=== PATIENT | female | born 1955 ===

== ENCOUNTER 2018-03-18 20:06 | Observation (INO) | payer OTHER ==
--- NOTE | 2018-03-18 20:20 | ED ---
Dizziness - HPI Summary HPI Summary: A 62 y/o female brought in by ambulance who was transferred from [facility] presents to [facility] with a chief complaint of dizziness since 11:00 03/18/18. The patient was at [facility] for weakness and was transferred to [facility] for neurology. The patient was given Lopressor and Reglan for nausea. She claims that her dizziness has been intermittent and is not able to describe her dizziness as room-spinning. - History Of Current Complaint Stated Complaint: FLU LIKE SYMPTOMS Time Seen by Provider: 03/18/18 20:09 Hx Obtained From: Patient, EMS Onset/Duration: Still Present Timing: Minutes Severity Initially: Mild Severity Currently: Mild Character: Unable To Describe Aggravating Factor(s): Nothing Alleviating Factor(s): Nothing Associated Signs And Symptoms: Positive: Nausea. Negative: Fever - Allergies/Home Medications Allergies/Adverse Reactions: Allergies Allergy/AdvReac Type Severity Reaction Status Date / Time No Known Allergies Allergy Verified 03/18/18 20:16 Home Medications: Home Medications Claritin 10 mg PO DAILY PRN 03/18/18 [History Confirmed 03/18/18] Ranitidine INJ(*) 10 mg PO DAILY 03/18/18 [History Confirmed 03/18/18] PMH/Surg Hx/FS Hx/Imm Hx - Cancer History Hx Chemotherapy: No Hx Radiation Therapy: No Review of Systems Negative: Fever Positive: Nausea Neurological: Other - positive: dizziness All Other Systems Reviewed And Are Negative: Yes Physical Exam - Summary Physical Exam Summary: Appearance: The patient is well-nourished in no acute distress and in no acute pain. Skin: The skin is warm and dry and skin color reflects adequate perfusion. HEENT: The head is normocephalic and atraumatic. The pupils are equal and reactive. The conjunctivae are clear and without drainage. Nares are patent and without drainage. Mouth reveals moist mucous membranes and the throat is without erythema and exudate. The external ears are intact. The ear canals are patent and without drainage. The tympanic membranes are intact. Neck: The neck is supple with full range of motion and non-tender. There are no carotid bruits. There is no neck vein distension. Respiratory: Chest is non-tender. Lungs are clear to auscultation and breath sounds are symmetrical and equal. Cardiovascular: Heart is regular rate and rhythm. There is no murmur or rub auscultated. There is no peripheral edema and pulses are symmetrical and equal. Abdomen: The abdomen is soft and non-tender. There are normal bowel sounds heard in all four quadrants and there is no organomegaly palpated. Musculoskeletal: There is no back tenderness noted. Extremities are non-tender with full range of motion. There is good capillary refill. There is no peripheral edema or calf tenderness elicited. Neurological: Horizontal nystagmus vast component to the right. Patient is alert and oriented to person, place and time. The patient has symmetrical motor strength in all four extremities. Cranial nerves are grossly intact. Deep tendon reflexes are symmetrical and equal in all four extremities. Psychiatric: The patient has an appropriate affect and does not exhibit any anxiety or depression. GCS: 14. Triage Information Reviewed: Yes Vital Signs Reviewed: Yes Diagnostics - Laboratory Result Diagrams: 03/19/18 05:31 03/19/18 05:28 Lab Statement: Any lab studies that have been ordered have been reviewed, and results considered in the medical decision making process. Dizzy Course/Dx - Course Course Of Treatment: Ms. Pena came over from [facility] where she spent most of the day. The report and the patient are a little bit vague but it seems as though her major complaint is dizziness and that there is a spinning component to it. She is not very forthcoming with answers so I'm not certain about that. She is nontoxic in appearance and her vital signs are stable. She has had a CT scan and labs and the onset was this morning. She is in the 24 hour window so a CTA was obtained to rule out a retrievable clot causing a posterior CVA. She will be admitted to the hospitalist service with a neurological consult and I spoke with Dr. Robbins and Dr. Grady.S She will likely need an MRI scan. - Diagnoses Provider Diagnoses: CVA (cerebral vascular accident) - Provider Notifications Discussed Care Of Patient With: Sheng Robbins Time Discussed With Above Provider: 20:25 Instructed by Provider To: Other - Will consult with the patient and recommends admission. Discharge - Sign-Out/Discharge Documenting (check all that apply): Patient Departure - admit - Discharge Plan Condition: Fair Disposition: ADMITTED TO [facility] - Billing Disposition and Condition Condition: FAIR Disposition: Admitted to [facility] - Attestation Statements Document Initiated by Scribe: Yes Documenting Scribe: Frandy Fisher Provider For Whom Scribe is Documenting (Include Credential): Mathew San MD Scribe Attestation: I, Frandy Fisher, scribed for Mathew San MD on 03/19/18 at 1154. Scribe Documentation Reviewed: Yes Provider Attestation: The documentation as recorded by the Frandy villanueva accurately reflects the service I personally performed and the decisions made by me, Mathew San MD Status of Scribe Document: Viewed Consult Consult: At 21:[address] Zavala, hospitalist, who may accept the patient based on the results of the Head/neck CTA.
[2018-03-18] MEDS ORDERED: Iodixanol* (CONTRAST) 320 MG/ML 100 ML SDV IV ONE (21:29)
[2018-03-18] MEDS ORDERED: Al Hydrox/Mg Hydrox/Simet LIQ* 30 ML UDC PO PRN (22:58)
[2018-03-18] MEDS ORDERED: PROCHLORPERAZINE INJ 5 MG/ML 2 ML VIAL IV PRN (23:18)
--- NOTE | 2018-03-19 01:52 | HP ---
CC: ELIN Arias * HISTORY AND PHYSICAL: DATE OF ADMISSION: 03/18/18 TIME OF ADMISSION: 11 p.m. CHIEF COMPLAINT: Dizziness. HISTORY OF PRESENT ILLNESS: This is a 62-year-old female with history of hypertension who presents with dizziness that started at 11 o'clock this morning. She was sitting at her desk at work, talking with someone when she had the sudden onset of dizziness which lasted approximately 10 minutes. Then it went away, came back again, and this happened approximately 3 times before she went home and lied down to rest. The symptoms then got progressively worse and she called her son, who came over and helped her up to go to the bathroom and she could barely walk. Her son says at that time she was breathing heavily and complained of her heart racing. Then, her daughter came to pick her and her son up, and when she was walking down the stairs, she could barely walk to the car. Then, she collapsed on the sidewalk and threw up what her daughter reports was a large volume and she was sweaty. She continues to feel dizzy, but closing her eyes helps and continues to feel nauseous. She denies chest pain, shortness of breath, headache, or change in vision. PAST MEDICAL HISTORY: Hypertension. She stopped taking medications. PAST SURGICAL HISTORY: She had a cholecystectomy, 2 C-sections, and a breast biopsy. SOCIAL HISTORY: She smokes a half a pack per day. She does not drink alcohol. She lives in [place]. Her emergency contact is her sister, Cherie. REVIEW OF SYSTEMS: Remainder of the 14-point review of systems was negative, except as per the HPI. PHYSICAL EXAMINATION GENERAL: Alert, uncomfortable female, in no distress. She vomits during my interview. She answers all my questions appropriately. VITAL SIGNS: Temperature 98.6, respiratory rate 16, pulse ox 94% on room air, heart rate 82, blood pressure 167/94. HEENT: Her pupils are 5 mm bilaterally and reactive to light. She has very slight nystagmus to the right which fatigues after 3 seconds. Her oral mucosa is dry. NECK: No JVP, no adenopathy, no meningeal signs. CHEST: Regular rate and rhythm. No murmurs. Lungs are clear bilaterally. ABDOMEN: Soft, mildly tender in the epigastric area. No guarding or rebound. No CVA tenderness. EXTREMITIES: No rashes, edema, or ulcers. NEUROLOGIC: Her strength is 5/5 in all extremities. Her patellar deep tendon reflexes are 2+ bilaterally. Her sensation is grossly intact. Her face is symmetric. Her coordination is intact. DIAGNOSTIC STUDIES/LAB DATA: Labs: D dimer less than 400. Urinalysis is negative. Creatinine 1.1, sodium 141, potassium 2.6, bicarb 21. White blood cells 9.6, hemoglobin 14.6, platelets 405. Troponin 0.003 from [facility]. Lactic acid 2.7. LFTs were within normal limits. Influenza swab was negative. 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 CTA of the neck shows no acute findings. ASSESSMENT AND PLAN: This is a 62-year-old female with no past medical history , except hypertension for which she does not take medications, who presented to the emergency department with several episodes of dizziness, nausea, vomiting, and weakness. 1. Paroxysmal dizziness, nausea, and vomiting associated with weakness. The differential for this is broad. Certainly, vertigo is on the differential. A CT and a CTA have ruled out an acute intracranial process, but I think she warrants an MRI in the morning to rule out a central cause of vertigo such as a cerebellar stroke. Dr. Robbins has been consulted by the emergency room physician and he agrees to see her in the morning as well. I have discussed her CTA findings with him. These are not likely to be contributing to her symptoms. An LP for opening pressure could also be considered if the MRI is unrevealing. In the meantime, I will treat her symptomatically and hydrate her. 2. Hypokalemia. This suggests ongoing GI losses, though she said that nausea and vomiting just started at 11 o'clock this morning. This has been replaced at [facility] and we will recheck it along with the next troponin. 3. Elevated lactic acid. I will recheck this again with the next troponin also. If it is still elevated, that raises a question of a primary abdominal process. 4. DVT prophylaxis. Heparin subcutaneously. 5. Hypertension. She does not take anything at home, though she is hypertensive here. In the setting of nausea and vomiting, we will hold off on resuming any antihypertensives and follow her blood pressure trend. [id number]/[facility] #: [id number] JOANN
[2018-03-19] MEDS ORDERED: NIFEdipine CAP* 10 MG PO ONE (02:04)
[2018-03-19 03:22] LABS: Potassium 3.5 mmol/L (3.5-5.0)
[2018-03-19] MEDS: Heparin VIAL(*) 5000 UNITS/ML VIAL (FIVE THOUSAND) SUBCUT SCH ×3 (05:13→21:17)
[2018-03-19] MEDS: Meclizine TAB* 12.5 MG PO SCH ×3 (05:13→21:16)
[2018-03-19 05:38] LABS: ABS Basophils 0 10^3/ul (0-0.2); ABS Eosinophils 0 10^3/ul (0-0.6); ABS Lymphocytes 1.5 10^3/ul (1.0-4.8); ABS Monocytes 0.5 10^3/ul (0-0.8); ABS Neutrophils 9.6 10^3/ul (1.5-7.7); ABS Nucleated RBC 0 10^3/ul; Eosinophil % 0 %; Hematocrit 42 % (35-47); Hemoglobin 14.4 g/dl (12.0-16.0); Lymphocyte % 12.6 %; Mean Corpuscular HGB Conc 34 g/dl (31-36); Mean Corpuscular Hemoglobin 30 pg (27-31); Mean Corpuscular Volume 89 fL (80-97); Mean Platelet Volume 8.9 fL (7.4-10.4); Nucleated Red Blood Cells % 0.1; Platelet Count 361 10^3/ul (150-450); Red Blood Count 4.73 10^6/ul (4.00-5.40); Red Cell Distribution Width 13 % (10.5-15); White Blood Count 11.7 10^3/ul (3.5-10.8)
[2018-03-19 05:53] LABS: BUN/Creatinine Ratio 11.5 (8-20); Calcium 9.5 mg/dL (8.6-10.3); EGFR Non-African American 75.3 (>60); Potassium 3.5 mmol/L (3.5-5.0)
[2018-03-19] MEDS: Nicotine PATCH 14 MG/24 HR* PATCH TRANSDERM SCH (07:27)
[2018-03-19] MEDS: NS 0.9% 1000 ML* 1,000 ML IV SCH ×3 (07:30→23:15)
--- NOTE | 2018-03-19 12:09 | CONS ---
CC: ELIN Arias CONSULTATION REPORT: DATE OF CONSULT: 03/19/18 LOCATION: Current location is room 436, bed 1. PRIMARY CARE PHYSICIAN: ELIN Arias REASON FOR CONSULTATION: Acute onset of dizziness and balance issues. HISTORY OF PRESENT ILLNESS: Ms. Pena is a very nice 62-year-old female with a history of hypertensi on, on no medications at home, who was at work yesterday, when around 11 o'clock, she noticed acute o nset of dizziness. She states that she was sitting down when it happened and developed dizziness, al though she denied any marivel room spinning. This lasted for about 10 minutes and then resolved sponta neously. It subsequently happened again 2 more times, each time lasting about 10 minutes. It seemed to be positional in nature and she had a hard time walking. She denied any headache at that time. She has had some tinnitus in the right ear for the last several weeks. No recent illnesses, viral il lnesses or flu. She had no vision changes at that time, no vision loss. There is no facial droop rep orted. She states that her heart was racing some, but she denied any chest pain or shortness of facundo th. She was otherwise in her usual state of health. She went home and went to lie down to rest. Re sting seemed to make it a little bit better, but the symptoms remained. She had a hard time walking and felt off balance, felt like she was falling to the left. She called her son, who came over, trie d to get her up, but she could not walk, at that time, she noted feeling like her heart was racing. She felt very diaphoretic. Her son attempted to get her to the car when she fell down and vomited an d was diaphoretic. The dizziness persisted and she was taken to the [facility] where further workup was done. In the ER, a CT of the head was done, which showed no acute abnormalities. She had eleva sophia blood pressure in the ER there, 162/80. She was given meclizine in the ER, Zofran, a dose of cef triaxone, metoprolol, also given azithromycin. Chemistries significant for potassium of 2.6, creatinine of 1.1, glucose of 151, lactic acid of 2.7. D-dimer less than 400. Based on all of this, she did not improve and she was eventually transferred to the [facility] ER where further workup was done. She had a head CT angiogram. The an giogram showed several abnormalities including a CT of the head, which showed aneurysm of the anterio r communicating artery, measuring 2 mm, aneurysm of the bifurcating of M1 segment of the right middle cerebral artery measuring 2 mm, multifocal moderate stenosis of bilateral M2 and M3 segments of bila teral middle cerebral arteries, multifocal mild to moderate stenosis of bilateral posterior cerebral arteries in the P2 and P3 segments. CT angiogram of the neck showed no acute findings. Vertebral art eries appeared patent. No dissection or occlusions. Carotid arteries are patent. No significant st enosis, no dissections or occlusions. She was admitted and sent to the floor with meclizine with no real improvement of her symptoms. She continued to vomit overnight. This morning, she feels nauseat ed when she moves, but when she closes her eyes and is still, she feels that her symptoms are better. She notes no hearing loss, no vision loss, no blurry vision, no speech problems, no swallowing prob lems. She has had no focal numbness, tingling, or weakness in her arm or legs. She continues to hav e palpitations at times. She notes no chest pain, shortness of breath. PAST MEDICAL HISTORY: As noted above. Hypertension. PAST SURGICAL HISTORY: Includes breast biopsy. She has had C-sections x2 and a cholecystectomy. CURRENT MEDICATIONS: 1. Maalox. 2. Heparin 5000 subcu. 3. Meclizine 25 mg p.o. q.8 hours. 4. Nicotine 1 patch transdermally. 5. Compazine 5 mg IV q.6 hours p.r.n. 6. She was given nifedipine 10 mg p.o. ALLERGIES: No known drug allergies. SOCIAL HISTORY: She smokes one half to one pack per day for 40 years. She denies any alcohol or roxana g use. 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 REVIEW OF SYSTEMS: Review of systems in 14-organ systems as noted above, otherwise negative. PHYSICAL EXAMINATION: Vital Signs: Temp of 98.6 to 97.2, she has been afebrile, pulse rate has been in the 70s to 96, respiratory rate 18, pulse ox of 95% to 99%. Blood pressure has been elevated, 179 /87 to 152/82 to 156/90 to 183/90. General: She is a well-nourished, well-developed, obese female. She is sleeping in her bed on her right side. She awakens easily. She is pleasant, although in some obvious discomfort. She is normocephalic, atraumatic. Sclerae are anicteric. Mucous membranes are dry. Oropharynx is clear. Nares are patent. Neck is supple. No thyromegaly. No carotid bruits. No meningismus. Chest is clear to auscultation bilaterally. Cardiovascular is regular rate and rhy thm. No murmurs, gallops or rubs. Abdomen is obese, nontender. Extremities: No clubbing, cyanosis or edema. Her skin is warm and dry without lesions. On neurologic exam, she is awake, alert and helio ented x3. Her speech is fluent. There is no dysarthria. Repetition is intact. Recall of recent an d remote events is intact. Vocabulary is intact. Her mood is dysthymic, affect mood congruent. Pie Cutter nial Nerves: Pupils are equally round and reactive to light and accommodation. Extraocular muscles are intact with no nystagmus. No ptosis. No diplopia. Visual hdz are full. Facial sensation is intact to light touch. Face is symmetric bilaterally. Hearing is intact bilaterally to finger rub. Palate raises symmetrically. Tongue is midline. Sternocleidomastoid and trapezius are 5/5. Motor exam, she is spontaneous and moves all extremities antigravity. Tone and bulk are both normal. She is 5/5 throughout in the upper and lower extremities proximally and distally. Sensation is intact to light touch in the upper and lower extremities throughout. No focal deficits. DTRs are 2+ and symm etric at the biceps, triceps, brachioradialis, patella, 1+ at the ankles, equivocal Babinski's. Fing er-to-nose and rapid alternating movements are intact with no dysdiadochokinesia or dysmetria. Heel- to- valladares is intact as well. There is no resting tremor. There is no uuozao-lh-bfyc tremor. Unfortu nately, she was unable to get up due to her dizziness and unsteadiness, so I did not walk her. She h as been able to ambulate some overnight with assistance. I did have her turn her head from side-to-s cornell with no nystagmus appreciated, but she did have some worsening of her dizziness. DIAGNOSTIC STUDIES/LAB DATA: Imaging as noted above. CTA and head CT, MRI is pending. Laboratory work includes basic metabolic panel with glucose of 139, lactic acid 0.9, calcium of 9.5, troponins of 0.00. Her CBC with diff shows a white count of 11.7, absolute neutrophils of 9.6. ASSESSMENT AND PLAN: Ms. Pena is a pleasant 62-year-old female with a history of hypertension, appa rently untreated at home, who presented to [facility] with acute onset of dizziness at 11 a.m. yeste rday. This persisted, she was eventually brought to the ER where CT of the head was done with no acu te changes. She was subsequently transferred to [facility] for further workup. CT angiog perez of the head [id number] some small aneurysms and some stenotic disease in the middle cerebral artery and posterior cerebral artery, vertebral basilar system looked intact. Overnight, she has continued to feel very dizzy. This has not responded very well to meclizine. She tends to improve when she is very still, when she moves, it exacerbates her symptoms. She notes continued nausea when she turns her head. On examination, there was no nystagmus appreciated. There was no obvious ataxia. No dysm etria, dysdiadochokinesia. Cbti-wu-absx and bbekvj-ds-txim both look okay. Symptoms were reproducib le with head turning and with position changes. Imaging shows no obvious causes for her symptoms. 1. I suspect that her dizziness is likely either vertiginous in nature versus the possibility of a s troke, in particular brainstem or cerebellar stroke. The plan is to get an MRI of her brain, should it show evidence of a stroke, we will need to proceed with a stroke workup including echocardiogram. She would need to be started on a baby aspirin at that point. I think this is safe given the small size of her aneurysms at this point, but I would hold for now. Other considerations would be a verti ginous migraine. She notes that she had migraines in the distant past, but none recently and she raymundo s not have headaches. The description of these events is atypical for that. Vertebral basilar syndr ome is a possibility, although her arteries look clean and open. She denies any recent viral illness es, I do not think that this is a viral prodrome. We will continue to treat her with Compazine and m eclizine as needed, IV fluids and I explained to her that often times, giving this some time will hel p. I may consider some steroids in the near future if she does not improve. 2. Vascular abnormalities on CTA. Her aneurysms are small, rather 2 mm. Her stenotic disease is mu ltifocal and moderate in the bilateral M2 and M3 segments, multifocal and mild to moderate in the P2 and P3 segments. No dissections or occlusions. Suspicion for something like a connective tissue dis ease is low, this is likely atherosclerotic in nature. I would check her cholesterol and treat accor dingly. She needs to strive for a tight blood pressure control. An aspirin ad terminal makeup operator probably would not hurt at this point, but we will hold for now, pending MRI and she will need continued followup f or her aneurysms with serial imaging over time, once these start to enlarge, we will need to refer to a neurosurgeon for further evaluation. 3. Tobacco use. She is on a nicotine patch. We will certified alcohol counselor on smoking cessation. 4. Hypertension. We will await the results of the MRI, but assuming there has been no stroke, we wi ll treat aggressively. For now, I would let her blood pressure run in the moderate range treating an y elevations greater than 180/95. 5. We discussed the possibility of vestibular physical therapy should that be needed, that can be do ne as an outpatient. I will plan to follow her up as well as an outpatient. I will continue to follow her closely and make further recommendations as necessary. Thank you for the opportunity to participate in the care of this very nice patient. [id number]/[facility] #: [id number]
[2018-03-19] MEDS ORDERED: Metoprolol Tartrate TAB* 25 MG PO ONE (15:14)
--- NOTE | 2018-03-19 15:30 | PN ---
Subjective Date of Service: 03/19/18 Interval History: Patient seen today, she continues to have increase dizziness and difficulty ambulating. no acute events. Appetite is better. no vomiting today. BP remain elevated. MRI reviewed. No acute CVA. Family History: Unchanged from Admission Social History: Unchanged from Admission Objective Active Medications: Al Hydrox/Mg Hydrox/Simethicone (Maalox Plus*) 30 ml PO Q6H PRN PRN Reason: INDIGESTION Last Admin: 03/19/18 00:40 Dose: 30 ml Heparin Sodium (Porcine) (Heparin Vial(*)) 5,000 units SUBCUT Q8HR [facility] Last Admin: 03/19/18 13:27 Dose: 5,000 units Sodium Chloride (Ns 0.9% 1000 Ml*) 1,000 mls @ 150 mls/hr IV PER RATE [facility] Last Admin: 03/19/18 07:30 Dose: 150 mls/hr Meclizine HCl (Antivert Tab*) 25 mg PO Q8HR [facility] Last Admin: 03/19/18 13:27 Dose: 25 mg Metoprolol Tartrate (Lopressor Tab*) 25 mg PO ONCE ONE Stop: 03/19/18 15:15 Metoprolol Tartrate (Lopressor Tab*) 25 mg PO BID [facility] Nicotine (Nicotine Patch 14 Mg/24 Hr*) 1 patch TRANSDERM DAILY [facility] Last Admin: 03/19/18 07:27 Dose: Not Given Pharmacy Profile Note (Nicotine Patch Removal Note*) 1 note PATCH OFF 2100 [facility] Prochlorperazine Edisylate (Compazine Inj*) 5 mg IV Q6H PRN PRN Reason: NAUSEA/VOMITING Last Admin: 03/19/18 00:40 Dose: 5 mg Vital Signs - 8 hr 03/19/18 03/19/18 07:27 12:17 Temperature 97.3 F 98.5 F Pulse Rate 103 97 Respiratory 14 16 Rate Blood Pressure 149/71 157/84 (mmHg) O2 Sat by Pulse 93 97 Oximetry Oxygen Devices in Use Now: None Appearance: awake, alert no distress. coherent. follow simple commands Eyes: No Scleral Icterus, PERRLA Ears/Nose/Mouth/Throat: NL Teeth, Lips, Gums, Clear Oropharnyx, Mucous Membranes Moist Neck: NL Appearance and Movements; NL JVP, Trachea Midline Respiratory: Symmetrical Chest Expansion and Respiratory Effort, Clear to Auscultation Cardiovascular: NL Sounds; No Murmurs; No JVD, RRR, No Edema Abdominal: NL Sounds; No Tenderness; No Distention Extremities: No Edema, No Clubbing, Cyanosis Skin: No Rash or Ulcers Neurological: Alert and Oriented x 3, - - unsteady gait requires one assist for balance. Result Diagrams: 03/19/18 05:31 03/19/18 05:28 Assess/Plan/Problems-Billing Assessment: 62 y/o female transferred from [facility] for nausea, vomiting and dizziness. CTA head shows incidental 2 mm cerebral aneurysm, MRI brain grossly negative. Admitted for possible BPV but remain unsteady on feet - Patient Problems (1) Dizziness Current Visit: Yes Status: Acute Code(s): R42 - DIZZINESS AND GIDDINESS SNOMED Code(s): 282295586 Comment: - Neuro consult appreciated. I discussed with Dr. Robbins. Cleared for discharge from neurology. - MRI brain 03/19/17 chronic small ischemic vessel disease. No acute finding - CTA head and neck aneuyrsm anterior communicating artery 2 mm in diameter; another one at the bifurcation of the M1 segment of the right middle cerebral arterty measuring about 2 mm; moderate multifocal stenosis bilateral of M2 and M3 segments of bilateral middle cerebral arteries, multifocal mild to moderate stenosis of bilateral posterior cerebral arteries in the P2 and P3 segments. - Will check Lipid pannel in am., TSH; B12 level - Treat with meclizine and compazine (2) Hypertension Current Visit: Yes Status: Acute Code(s): I10 - ESSENTIAL (PRIMARY) HYPERTENSION SNOMED Code(s): 02811951 Comment: - BP remains elevated. - MRI negative for stroke will start her on lopressor and treat gently as we lower her BP (3) DVT prophylaxis Current Visit: Yes Status: Acute Code(s): QIS6528 - SNOMED Code(s): 234418965 Comment: heparin SQ
[2018-03-19] MEDS ORDERED: Nicotine Patch Removal NOTE PATCH OFF SCH (21:00)
[2018-03-19] MEDS: Metoprolol Tartrate TAB* 25 MG PO SCH (21:16)
[2018-03-20 05:50] LABS: ABS Basophils 0.1 10^3/ul (0-0.2); ABS Eosinophils 0.1 10^3/ul (0-0.6); ABS Lymphocytes 2.8 10^3/ul (1.0-4.8); ABS Monocytes 0.5 10^3/ul (0-0.8); ABS Neutrophils 4.5 10^3/ul (1.5-7.7); ABS Nucleated RBC 0 10^3/ul; Eosinophil % 1.4 %; Hematocrit 40 % (35-47); Hemoglobin 13.4 g/dl (12.0-16.0); Lymphocyte % 34.7 %; Mean Corpuscular HGB Conc 34 g/dl (31-36); Mean Corpuscular Hemoglobin 30 pg (27-31); Mean Corpuscular Volume 90 fL (80-97); Mean Platelet Volume 8.9 fL (7.4-10.4); Nucleated Red Blood Cells % 0.1; Platelet Count 300 10^3/ul (150-450); Red Blood Count 4.43 10^6/ul (4.00-5.40); Red Cell Distribution Width 13 % (10.5-15); White Blood Count 8.1 10^3/ul (3.5-10.8)
[2018-03-20] MEDS: Heparin VIAL(*) 5000 UNITS/ML VIAL (FIVE THOUSAND) SUBCUT SCH ×2 (06:05→12:58)
[2018-03-20] MEDS: Meclizine TAB* 12.5 MG PO SCH ×2 (06:05→13:00)
[2018-03-20 06:10] LABS: Albumin 3.9 g/dL (3.2-5.2); Albumin/Globulin Ratio 1.3 (1-3); BUN/Creatinine Ratio 13.8 (8-20); Calcium 9.2 mg/dL (8.6-10.3); EGFR Non-African American 66.4 (>60); HDL Cholesterol 43.6 mg/dL; Indirect Bilirubin 0.3 mg/dL (0.3-1.0); Magnesium 2.1 mg/dL (1.9-2.7); Phosphorus 2.2 mg/dL (2.5-5.0); Potassium 3.8 mmol/L (3.5-5.0); Total Bilirubin 0.4 mg/dL (0.2-1.0); Total Protein 6.9 g/dL (6.4-8.9)
[2018-03-20] MEDS: NS 0.9% 1000 ML* 1,000 ML IV SCH (06:46)
[2018-03-20 06:58] LABS: TSH (Thyroid Stimulating Horm) 2.88 mcIU/mL (0.34-5.60)
[2018-03-20] MEDS: Nicotine PATCH 14 MG/24 HR* PATCH TRANSDERM SCH (07:47)
[2018-03-20] MEDS: Metoprolol Tartrate TAB* 25 MG PO SCH (07:47)
[2018-03-20 11:33] VITALS: BP 149/78
--- NOTE | 2018-03-20 13:10 | PN ---
Subjective Date of Service: 03/20/18 Interval History: Patient seen doing well. no acute distress. Slept well. ambulating. Tolerating po well. no fever or chills. no nausea or vomiting. BP improved but still elevated Family History: Unchanged from Admission Social History: Unchanged from Admission Objective Active Medications: Al Hydrox/Mg Hydrox/Simethicone (Maalox Plus*) 30 ml PO Q6H PRN PRN Reason: INDIGESTION Last Admin: 03/19/18 00:40 Dose: 30 ml Heparin Sodium (Porcine) (Heparin Vial(*)) 5,000 units SUBCUT Q8HR [facility] Last Admin: 03/20/18 12:58 Dose: Not Given Sodium Chloride (Ns 0.9% 1000 Ml*) 1,000 mls @ 150 mls/hr IV PER RATE [facility] Last Admin: 03/20/18 06:46 Dose: 150 mls/hr Meclizine HCl (Antivert Tab*) 25 mg PO Q8HR [facility] Last Admin: 03/20/18 13:00 Dose: 25 mg Metoprolol Tartrate (Lopressor Tab*) 25 mg PO BID [facility] Last Admin: 03/20/18 07:47 Dose: 25 mg Nicotine (Nicotine Patch 14 Mg/24 Hr*) 1 patch TRANSDERM DAILY [facility] Last Admin: 03/20/18 07:47 Dose: Not Given Pharmacy Profile Note (Nicotine Patch Removal Note*) 1 note PATCH OFF 2100 [facility] Last Admin: 03/19/18 21:21 Dose: Not Given Prochlorperazine Edisylate (Compazine Inj*) 5 mg IV Q6H PRN PRN Reason: NAUSEA/VOMITING Last Admin: 03/19/18 00:40 Dose: 5 mg Vital Signs - 8 hr 03/20/18 03/20/18 03/20/18 07:30 07:32 11:02 Temperature 98.6 F 98.0 F Pulse Rate 85 79 Respiratory 18 16 16 Rate Blood Pressure 162/94 149/78 (mmHg) O2 Sat by Pulse 96 95 Oximetry Oxygen Devices in Use Now: None Appearance: awake, alert. no distress Eyes: No Scleral Icterus Ears/Nose/Mouth/Throat: NL Teeth, Lips, Gums, Clear Oropharnyx, Mucous Membranes Moist Neck: NL Appearance and Movements; NL JVP, Trachea Midline Respiratory: Symmetrical Chest Expansion and Respiratory Effort, Clear to Auscultation Cardiovascular: NL Sounds; No Murmurs; No JVD, RRR, No Edema Abdominal: NL Sounds; No Tenderness; No Distention Lymphatic: No Cervical Adenopathy Skin: No Rash or Ulcers Neurological: Alert and Oriented x 3, NL Sensation, NL Gait Result Diagrams: 03/20/18 05:41 03/20/18 05:41 Assess/Plan/Problems-Billing Assessment: 62 y/o female transferred from [facility] for nausea, vomiting and dizziness. CTA head shows incidental 2 mm cerebral aneurysm, MRI brain grossly negative. Admitted for possible BPV but remain unsteady on feet - Patient Problems (1) Dizziness Current Visit: Yes Status: Acute Code(s): R42 - DIZZINESS AND GIDDINESS SNOMED Code(s): 016786026 Comment: - I believe it was triggered with her hypertension given her negative CT and Brain MRI - Neuro consult appreciated. I discussed with Dr. Robbins. Cleared for discharge from neurology. - MRI brain 03/19/17 chronic small ischemic vessel disease. No acute finding - CTA head and neck aneuyrsm anterior communicating artery 2 mm in diameter; another one at the bifurcation of the M1 segment of the right middle cerebral arterty measuring about 2 mm; moderate multifocal stenosis bilateral of M2 and M3 segments of bilateral middle cerebral arteries, multifocal mild to moderate stenosis of bilateral posterior cerebral arteries in the P2 and P3 segments. Follow up oupatient - LDL 93. TSH 2.88; B12 1061 - Treated with meclizine and compazine prn. Will send her home with prn Meclizine (2) Hypertension Current Visit: Yes Status: Acute Code(s): I10 - ESSENTIAL (PRIMARY) HYPERTENSION SNOMED Code(s): 60563251 Comment: - BP remains elevated. - MRI negative for stroke. - BP better with lopressor 25 mg bid but I will add her losartan 50 mg daily - Need to follow up with PCP for BMP and BP recheck (3) DVT prophylaxis Current Visit: Yes Status: Acute Code(s): AVG1661 - SNOMED Code(s): 468218574 Comment: heparin SQ
--- NOTE | 2018-03-20 19:31 | DS ---
CC: Dr. Woody Robbins; ELIN Arias * DISCHARGE SUMMARY: DATE OF ADMISSION: 03/18/18 DATE OF DISCHARGE: 03/20/18 PRIMARY CARE PROVIDER: ELIN Arias FINAL DISCHARGE DIAGNOSES: 1. Hypertensive urgency. 2. Dizziness, nausea, vomiting, most likely secondary to her hypertension and poorly controlled blood pressure. 3. Incidental finding of cerebral aneurysm. HOSPITAL COURSE: The patient presented to [facility] on 03/18/18 for ongoing weakness associated with dizziness followed by nausea and vomiting and difficulty with ambulation, weakness and lethargy. She presented, she was started on the stroke protocol and quickly deescalated for possible dizziness and vertigo. Neurology saw the patient and was consulted in the emergency room and recommended to proceed with neuro checks and MRI the following morning. The patient was maintained on tele. Her record from [facility] reviewed was negative for urinalysis. Chest x-ray was questionable for infiltrate. This was repeated by me on the following day today and was negative by 2-view. MRI as well which was done yesterday did not reveal any evidence of stroke, evidence of ischemic vessel disease, questionable demyelinating disease. This was reviewed with Dr. Robbins and myself and did not cause any concern for Neurology. Recommended discharge. Follow up with him as an outpatient. The patient was maintained in the hospital from 03/19/18 to 03/20/18 to obtain physical therapy and she was seen today. The patient was able to ambulate 100 feet with standby and fairly independent. Recommended outpatient followup with Physical Therapy if she continues to have difficulty with balance. Therefore, I deemed the patient stable for discharge to follow up with her primary care and Neurology as an outpatient with new medication to be started for her blood pressure and needs to be titrated up or low once she follows with her primary and blood work to be followed with primary as an outpatient. DISCHARGE MEDICATIONS: 1. Lopressor 25 b.i.d. 2. Losartan 50 mg daily. 3. Meclizine 25 q.6 p.r.n. for dizziness. DISCHARGE INSTRUCTIONS: Cardiac diet. Activity as tolerated. Appointment to follow up with her primary care in 1 to 2 weeks. Follow up with Dr. Woody Robbins, Neurology, in 1 to 2 weeks. Message to the primary care provider: Please follow up with the patient in 1 to 2 weeks to ensure proper blood pressure medication tolerance and to follow up with the BMP as she was started on losartan 50 mg daily. [id number]/[facility] #: [id number] MTDD
== END 2018-03-20 13:35 | disposition home or self-care (01) ==
LOC: ED 20:06 → MEDTELE 22:58
PROVIDERS: ADMIT Internal Medicine; ATTEND Internal Medicine
DX: I16.0 Hypertensive urgency (principal); R42 Dizziness and giddiness; R11.2 Nausea with vomiting, unspecified; I67.1 Cerebral aneurysm, nonruptured; E87.6 Hypokalemia; F17.210 Nicotine dependence, cigarettes, uncomplicated
CPT/HCPCS: 36415; 70496; 70498; 70551; 71046; 80048; 80061; 80076; 82607; 83605; 83735; 84100; 84132; 84443; 84484; 85025; 96361; 96372; 99284; 99406; A9270-GY; G0378; J0780; J1644; Q9967

== ENCOUNTER 2023-05-04 09:59 | Inpatient (IN) ==
[2023-05-04 13:16] LABS: PCO2 Arterial 43 mmHg (35-45); PO2 Arterial 68 mmHg (80-100)
[2023-05-04] MEDS: cefTRIAXone 1 gm/50 mL D5W 1 GM/50 ML BAG IV SCH (13:51)
[2023-05-04] MEDS: Pantoprazole VIAL 40 MG VIAL IV SCH (13:51)
[2023-05-04] MEDS: methylPREDNISolone SOD SUCC 40 mg/ml 1 ml VIAL IV SCH (13:51)
[2023-05-04] MEDS: Azithromycin 500 mg/250 ml NS 500 MG/250 ML BAG IVPB SCH (13:51)
[2023-05-04] MEDS: Ondansetron 4 mg VIAL 2 MG/ML 2 ml VIAL IV ONE (14:52)
[2023-05-04] MEDS: Morphine 2 MG/ML SYRINGE IV ONE (14:52)
[2023-05-04] MEDS: Ondansetron 4 mg VIAL 2 MG/ML 2 ml VIAL ONE (14:53)
[2023-05-04] MEDS: Enoxaparin 40 MG/0.4 ML SYR SUBCUT SCH (17:18)
[2023-05-05] MEDS: LORazepam 2 mg VIAL 1 ml IV PUSH ONE (02:00)
[2023-05-05] MEDS: LORazepam 2 mg VIAL 1 ml ONE (02:11)
[2023-05-05 05:05] LABS: ABS Lymphocytes 0.6 10^3/uL (1.0-4.8); ABS Monocytes 0.9 10^3/uL (0.0-0.9); ABS Neutrophils 9.3 10^3/uL (1.5-7.6); ABS Nucleated RBC 0.01 10^3/ul; Hematocrit 36.2 % (35-45); Hemoglobin 12.2 g/dL (11.5-14.3); Lymphocyte % 5.5 %; Mean Corpuscular Hgb Conc 33.7 g/dL (31-36); Mean Corpuscular Volume 88.9 fL (80-97); Mean Platelet Volume 8.7 fL (7.5-11.2); Nucleated Red Blood Cells % 0.1 %/100WBC (0.0-0.8); Platelet Count 337 10^3/uL (150-450); Red Blood Count 4.07 10^6/uL (3.63-4.92); Red Cell Distribution Width 13.6 % (12-17); White Blood Count 10.8 10^3/uL (3.8-11.8)
[2023-05-05 06:27] LABS: Potassium 4.8 mmol/L (3.5-5.0)
[2023-05-05 06:28] LABS: Albumin 3.1 g/dL (3.2-5.2); Albumin/Globulin Ratio 1.1 (1-3); Calcium 8.2 mg/dL (8.6-10.3); Creatinine, Serum 0.68 mg/dL (0.51-0.95); Globulin 2.9 g/dL (2-4); Magnesium 2.6 mg/dL (1.9-2.7); Total Bilirubin 0.4 mg/dL (0.2-1.0); eGFR CKD-EPI 96.6 (>60)
[2023-05-05] MEDS: Furosemide 40 mg/4 ml IV VIAL IV ONE (08:28)
[2023-05-05] MEDS: methylPREDNISolone SOD SUCC 40 mg/ml 1 ml VIAL IV SCH ×2 (14:01→20:56)
[2023-05-05] MEDS: methylPREDNISolone SOD SUCC 40 mg/ml 1 ml VIAL IV ONE (14:31)
[2023-05-05] MEDS ORDERED: Lorazepam PYXIS KEY PRN (20:14)
[2023-05-05] MEDS: LORazepam 2 mg VIAL 1 ml IV PUSH PRN (20:56)
[2023-05-06 05:31] LABS: Hematocrit 35.2 % (35-45); Mean Corpuscular Hemoglobin 30.2 pg (27-33); Mean Corpuscular Hgb Conc 33.9 g/dL (31-36); Mean Corpuscular Volume 88.9 fL (80-97); Mean Platelet Volume 8.6 fL (7.5-11.2); Platelet Count 359 10^3/uL (150-450); Red Blood Count 3.96 10^6/uL (3.63-4.92); Red Cell Distribution Width 13.5 % (12-17); White Blood Count 12.1 10^3/uL (3.8-11.8)
[2023-05-06 05:55] LABS: ABS Lymphocytes 0.5 10^3/uL (1.0-4.8); ABS Monocytes 0.6 10^3/uL (0.0-0.9); Eosinophil % 0.1 %; Lymphocyte % 4.4 %
[2023-05-06 06:13] LABS: Calcium 8.6 mg/dL (8.6-10.3); Creatinine, Serum 0.7 mg/dL (0.51-0.95); Magnesium 2.5 mg/dL (1.9-2.7); eGFR CKD-EPI 95.9 (>60)
[2023-05-06] MEDS: methylPREDNISolone SOD SUCC 125 mg 2 ML VIAL IV SCH (08:51)
[2023-05-07] MEDS: Morphine 2 MG/ML SYRINGE IV PRN (00:18)
[2023-05-07] MEDS: Morphine 2 MG/ML SYRINGE ONE (02:17)
[2023-05-07 04:34] LABS: Hematocrit 34.8 % (35-45); Hemoglobin 11.8 g/dL (11.5-14.3); Mean Corpuscular Volume 88.3 fL (80-97); Mean Platelet Volume 8.3 fL (7.5-11.2); Platelet Count 412 10^3/uL (150-450); Red Blood Count 3.94 10^6/uL (3.63-4.92); Red Cell Distribution Width 13.3 % (12-17); White Blood Count 15.2 10^3/uL (3.8-11.8)
[2023-05-07 06:22] LABS: Calcium 8.7 mg/dL (8.6-10.3); Creatinine, Serum 0.68 mg/dL (0.51-0.95); Magnesium 2.4 mg/dL (1.9-2.7); Potassium 4.9 mmol/L (3.5-5.0); eGFR CKD-EPI 96.6 (>60)
[2023-05-07 09:44] LABS: Albumin 3.1 g/dL (3.2-5.2); Albumin/Globulin Ratio 1.2 (1-3); Direct Bilirubin 0.1 mg/dL (0.03-0.18); Globulin 2.5 g/dL (2-4); Indirect Bilirubin 0.4 mg/dL (0.3-1.0); Total Bilirubin 0.5 mg/dL (0.2-1.0); Total Protein 5.6 g/dL (6.4-8.9)
[2023-05-07] MEDS ORDERED: Nystatin SUSPENSION 100,000 UNITS/ML UDC PO SCH ×2 (13:00)
[2023-05-07] MEDS ORDERED: Midazolam 10 mg/10 ml VIAL 1 mg/ml 10 ml VIAL (10 mg) ONE (15:57)
[2023-05-07] MEDS ORDERED: Rocuronium 50 mg VIAL 10 mg/ml 5 ml VIAL (50 mg) ONE (15:57)
[2023-05-07] MEDS ORDERED: Etomidate 40 mg/20 ml (2 MG/ML) 20 ml VIAL (40 mg) ONE (15:57)
[2023-05-07] MEDS: Succinylcholine 200 mg VIAL 20 mg/ml 10 ml VIAL (200 mg) ONE (16:19)
[2023-05-07] MEDS: Propofol 10 mg/ml 100 ML BTL 1,000 MG/100 ML BTL IV SCH ×2 (16:20→19:05)
[2023-05-07] MEDS: Rocuronium 50 mg VIAL 10 mg/ml 5 ml VIAL (50 mg) ONE (16:28)
[2023-05-07] MEDS: Etomidate 20 mg/10 ml 2 MG/ML 10 ml VIAL IV ONE (16:29)
[2023-05-07] MEDS: Propofol 10 mg/ml 100 ML BTL 1,000 MG/100 ML BTL ONE (16:29)
[2023-05-07] MEDS: fentaNYL 100 mcg/2 ml 50 MCG/ML VIAL IV SLOW PU PRN (16:34)
[2023-05-07] MEDS ORDERED: Labetalol IV 5 MG/ML 20 ml VIAL IV PUSH PRN (16:42)
[2023-05-07] MEDS: Midazolam 5 mg/5 ml VIAL 1 mg/ml 5 ml VIAL (5 mg) IV SLOW PU ONE (16:52)
[2023-05-07] MEDS: Rocuronium 50 mg VIAL 10 mg/ml 5 ml VIAL (50 mg) IV ONE (16:52)
[2023-05-07] MEDS ORDERED: Propofol 10 mg/ml 100 ML BTL 1,000 MG/100 ML BTL IV SCH (17:00)
[2023-05-07] MEDS: Chlorhexidine MOUTHWASH 0.12% 15 ML UDC TOPICAL SCH (17:17)
[2023-05-07] MEDS: Nystatin SUSPENSION 100,000 UNITS/ML UDC PO SCH (17:17)
[2023-05-07] MEDS: fentaNYL INFUSION 50 mcg/mL VL 2,500 MCG/50 ML VIAL IV SCH ×2 (17:24→19:04)
[2023-05-07] MEDS ORDERED: Polyethylene Glycol 3350 17 GM PACKET PO PRN (17:30)
[2023-05-07] MEDS: hydrALAZINE 20 mg/ml 1 ML Vial IV IV SLOW PU ONE (17:36)
[2023-05-07] MEDS: Midazolam PREMIXBAG 1 MG/ML NS 100 ML IV SCH ×2 (19:03→20:05)
[2023-05-07] MEDS ORDERED: Atropine 0.1 MG/ML 10 ml SYR (1 mg) IV PUSH PRN (19:25)
[2023-05-07] MEDS: Atropine 0.1 MG/ML 10 ml SYR (1 mg) ONE (19:49)
[2023-05-07] MEDS: Atropine 0.1 MG/ML 10 ml SYR (1 mg) IV PUSH ONE (19:49)
[2023-05-07 22:48] LABS: Resp Rate 16
[2023-05-07 22:51] LABS: PCO2 Arterial 47 mmHg (35-45); PO2 Arterial 90 mmHg (80-100)
[2023-05-08 01:03] LABS: Urine Appearance Turbid; Urine Bilirubin Negative (Negative); Urine Blood 2+ (Negative); Urine Color Yellow; Urine Glucose Negative (Negative); Urine Ketones Negative (Negative); Urine Nitrite Negative (Negative); Urine Protein Trace (Negative); Urine Specific Gravity 1.031 (1.002-1.030); Urine Urobilinogen Negative (Negative); Urine pH 5.5 (5.0-8.0)
[2023-05-08 01:13] LABS: Budding Yeast Present /HPF (Absent); Urine Bacteria Absent /HPF (Absent); Urine Red Blood Cell 3+(>10/hpf) /HPF (0-Trace); Urine Squamous Epithelial Cell Present /HPF (Absent); Urine White Blood Cell Trace(0-5/hpf) /HPF (0-Trace)
[2023-05-08] MEDS: Norepinephrine 4 MG/250mL NS 4,000 MCG/250 ML BAG IV SCH ×2 (02:00→04:13)
[2023-05-08] MEDS: NS 0.9% 1000 ml BAG 1,000 ML IV ONE (02:10)
[2023-05-08] MEDS: Artificial Tear OPHTH.OINT 3.5 GM BOTH EYES PRN (03:14)
[2023-05-08] MEDS: Rocuronium 50 mg VIAL 10 mg/ml 5 ml VIAL (50 mg) IV ONE ×2 (03:41→04:57)
[2023-05-08] MEDS: Cisatracurium 100 MG in NS 0.9% 250 ml 200 ML IV SCH ×3 (03:50→04:14)
[2023-05-08] MEDS ORDERED: Zosyn per Pharmacy NOTE FOLLOW UP SCH (04:00)
[2023-05-08] MEDS: Piperacillin/Tazobac 3.375 BAG 3.375 GM/100 ML BAG IV ONE (05:00)
[2023-05-08] MEDS: Vancomycin 1,500 MG in NS 0.9% 250 ml 250 ML IVPB ONE (05:06)
[2023-05-08 05:56] LABS: Hemoglobin 11.6 g/dL (11.5-14.3); Mean Corpuscular Hemoglobin 29.7 pg (27-33); Mean Corpuscular Volume 89.8 fL (80-97); Mean Platelet Volume 8.3 fL (7.5-11.2); Platelet Count 527 10^3/uL (150-450); Red Cell Distribution Width 13.5 % (12-17); White Blood Count 22.9 10^3/uL (3.8-11.8)
[2023-05-08 06:50] LABS: Albumin 3.1 g/dL (3.2-5.2); Albumin/Globulin Ratio 1.1 (1-3); Creatinine, Serum 0.73 mg/dL (0.51-0.95); Globulin 2.7 g/dL (2-4); Magnesium 2.5 mg/dL (1.9-2.7); Potassium 5.1 mmol/L (3.5-5.0); Total Bilirubin 0.6 mg/dL (0.2-1.0); Total Protein 5.8 g/dL (6.4-8.9); eGFR CKD-EPI 91.2 (>60)
[2023-05-08] MEDS: ZOSYN 3.375 GM Q8H per EXTENDED INFUSION IV SCH (08:37)
[2023-05-08] MEDS ORDERED: Vancomycin per Pharmacy 1 EA NOTE FOLLOW UP SCH (09:00)
[2023-05-08] MEDS: fentaNYL INFUSION 50 mcg/mL VL 2,500 MCG/50 ML VIAL IV SCH (10:28)
[2023-05-08] MEDS: Furosemide 20 mg/2 ml IV VIAL IV SLOW PU ONE (10:48)
[2023-05-08 11:02] LABS: Hepatitis B Surface Antigen Nonreactive (Nonreactive)
[2023-05-08 11:07] LABS: Hepatitis B Core IgM Nonreactive (Nonreactive)
[2023-05-08 11:13] LABS: HIV 4th Generation Nonreactive (Nonreactive)
[2023-05-08 11:19] LABS: Hepatitis B Surface Ab Not Immune (Immune)
[2023-05-08 18:09] LABS: Resp Rate 20
[2023-05-08 18:12] LABS: PCO2 Arterial 67 mmHg (35-45); PO2 Arterial 76 mmHg (80-100)
[2023-05-08] MEDS: Propofol 10 mg/ml 100 ML BTL 1,000 MG/100 ML BTL IV SCH (23:31)
[2023-05-09] MEDS: Carboxymethylcellulose/Glyceri 10 ML OPHTH.GEL lubricant eye gel BOTH EYES SCH (00:55)
[2023-05-09 05:38] LABS: Hematocrit 32.9 % (35-45); Hemoglobin 11.1 g/dL (11.5-14.3); Mean Corpuscular Hemoglobin 30.2 pg (27-33); Mean Corpuscular Hgb Conc 33.7 g/dL (31-36); Mean Corpuscular Volume 89.6 fL (80-97); Mean Platelet Volume 8.3 fL (7.5-11.2); Platelet Count 393 10^3/uL (150-450); Red Blood Count 3.67 10^6/uL (3.63-4.92); Red Cell Distribution Width 13.4 % (12-17); White Blood Count 10.1 10^3/uL (3.8-11.8)
[2023-05-09 06:14] LABS: Calcium 8.1 mg/dL (8.6-10.3); Creatinine, Serum 0.71 mg/dL (0.51-0.95); Magnesium 2.7 mg/dL (1.9-2.7); Potassium 4.7 mmol/L (3.5-5.0); eGFR CKD-EPI 94.3 (>60)
[2023-05-09] MEDS: Furosemide 20 mg/2 ml IV VIAL IV SLOW PU ONE (10:28)
[2023-05-09] MEDS: Midazolam PREMIXBAG 1 MG/ML NS 100 ML IV SCH (16:07)
[2023-05-09] MEDS: Propofol 10 mg/ml 100 ML BTL 1,000 MG/100 ML BTL IV SCH (16:11)
[2023-05-09] MEDS: Metoclopramide 5 MG/ML VIAL (10 mg) IV SLOW PU SCH (23:17)
[2023-05-10 05:23] LABS: Hematocrit 33.8 % (35-45); Hemoglobin 11.7 g/dL (11.5-14.3); Mean Corpuscular Hemoglobin 30.8 pg (27-33); Mean Corpuscular Hgb Conc 34.6 g/dL (31-36); Mean Corpuscular Volume 89.2 fL (80-97); Mean Platelet Volume 8.3 fL (7.5-11.2); Platelet Count 385 10^3/uL (150-450); Red Blood Count 3.79 10^6/uL (3.63-4.92); Red Cell Distribution Width 13.4 % (12-17); White Blood Count 9.7 10^3/uL (3.8-11.8)
[2023-05-10 06:02] LABS: Calcium 8.2 mg/dL (8.6-10.3); Creatinine, Serum 0.67 mg/dL (0.51-0.95); Magnesium 2.7 mg/dL (1.9-2.7); Potassium 4.8 mmol/L (3.5-5.0); eGFR CKD-EPI 96.9 (>60)
[2023-05-10] MEDS: Midazolam PREMIXBAG 1 MG/ML NS 100 ML IV SCH (09:53)
[2023-05-10 11:13] LABS: Hepatitis Be Antigen Negative (Negative)
[2023-05-10] MEDS: Lactated Ringers 1000 ml BAG 500 ML IV SCH (11:21)
[2023-05-10] MEDS: fentaNYL INFUSION 50 mcg/mL VL 2,500 MCG/50 ML VIAL IV SCH (11:28)
[2023-05-10] MEDS: Propofol 10 mg/ml 100 ML BTL 1,000 MG/100 ML BTL IV SCH (13:11)
[2023-05-10] MEDS: Lactated Ringers 1000 ml BAG 1,000 ML IV SCH (17:54)
[2023-05-11] MEDS: HYDROmorphone 1 MG/1 ML SYRINGE IV ONE (04:46)
[2023-05-11 05:15] LABS: Hematocrit 33.8 % (35-45); Hemoglobin 11.3 g/dL (11.5-14.3); Mean Corpuscular Hemoglobin 29.9 pg (27-33); Mean Corpuscular Hgb Conc 33.3 g/dL (31-36); Mean Corpuscular Volume 89.7 fL (80-97); Mean Platelet Volume 8.8 fL (7.5-11.2); Platelet Count 351 10^3/uL (150-450); Red Blood Count 3.77 10^6/uL (3.63-4.92); Red Cell Distribution Width 13.4 % (12-17); White Blood Count 15.2 10^3/uL (3.8-11.8)
[2023-05-11 05:43] LABS: Calcium 8.3 mg/dL (8.6-10.3); Creatinine, Serum 0.76 mg/dL (0.51-0.95); Magnesium 2.5 mg/dL (1.9-2.7); Potassium 5.2 mmol/L (3.5-5.0); eGFR CKD-EPI 86.9 (>60)
[2023-05-11] MEDS: Furosemide 40 mg/4 ml IV VIAL IV SLOW PU ONE ×2 (12:27→19:39)
[2023-05-11] MEDS: HYDROmorphone 1 MG/1 ML SYRINGE IV SLOW PU ONE (14:09)
[2023-05-11] MEDS: HYDROmorphone 1 MG/1 ML SYRINGE ONE (14:09)
[2023-05-11] MEDS ORDERED: HYDROmorphone 1 MG/1 ML SYRINGE IV SLOW PU PRN (14:59)
[2023-05-11 18:29] LABS: Calcium 8.1 mg/dL (8.6-10.3); Creatinine, Serum 0.77 mg/dL (0.51-0.95); Potassium 4.7 mmol/L (3.5-5.0); eGFR CKD-EPI 85.6 (>60)
[2023-05-11 20:12] LABS: C Reactive Protein 3.64 mg/L (<8.01)
[2023-05-11] MEDS: HYDROmorphone 1 MG/1 ML SYRINGE IV SLOW PU PRN (22:32)
[2023-05-12] MEDS ORDERED: Atropine 0.1 MG/ML 10 ml SYR (1 mg) IV PUSH PRN (02:18)
[2023-05-12 04:25] LABS: Hematocrit 33.1 % (35-45); Hemoglobin 11.1 g/dL (11.5-14.3); Mean Corpuscular Hemoglobin 29.9 pg (27-33); Mean Corpuscular Hgb Conc 33.6 g/dL (31-36); Mean Corpuscular Volume 88.9 fL (80-97); Mean Platelet Volume 8.5 fL (7.5-11.2); Platelet Count 322 10^3/uL (150-450); Red Blood Count 3.72 10^6/uL (3.63-4.92); Red Cell Distribution Width 13.4 % (12-17); White Blood Count 11.2 10^3/uL (3.8-11.8)
[2023-05-12 05:04] LABS: Calcium 8.2 mg/dL (8.6-10.3); Creatinine, Serum 0.68 mg/dL (0.51-0.95); Magnesium 2.5 mg/dL (1.9-2.7); Potassium 4.4 mmol/L (3.5-5.0); eGFR CKD-EPI 96.6 (>60)
[2023-05-12 09:38] LABS: Resp Rate 20
[2023-05-12] MEDS: Furosemide 40 mg/4 ml IV VIAL IV SLOW PU ONE (09:39)
[2023-05-12] MEDS: Senna TAB 8.6 mg TAB PO SCH (09:40)
[2023-05-12] MEDS: Polyethylene Glycol 3350 17 GM PACKET PO SCH (09:41)
[2023-05-12 09:42] LABS: PCO2 Arterial 54 mmHg (35-45); PO2 Arterial 84 mmHg (80-100)
[2023-05-12 17:58] LABS: Calcium 8.6 mg/dL (8.6-10.3); Creatinine, Serum 0.88 mg/dL (0.51-0.95); Potassium 4.6 mmol/L (3.5-5.0); eGFR CKD-EPI 72.9 (>60)
[2023-05-12] MEDS: Propofol 10 mg/ml 100 ML BTL 1,000 MG/100 ML BTL IV SCH (18:09)
[2023-05-12] MEDS ORDERED: Dextrose 50% Syringe 50 ml 25 GM/50 ML SYRINGE IV PUSH PRN (18:54)
[2023-05-12] MEDS: Furosemide 20 mg/2 ml IV VIAL IV ONE (20:12)
[2023-05-13] MEDS: methylPREDNISolone SOD SUCC 125 mg 2 ML VIAL IV SCH (03:05)
[2023-05-13 05:02] LABS: ABS Lymphocytes 0.4 10^3/uL (1.0-4.8); ABS Monocytes 0.6 10^3/uL (0.0-0.9); ABS Neutrophils 10.5 10^3/uL (1.5-7.6); ABS Nucleated RBC 0.01 10^3/ul; Hematocrit 32.2 % (35-45); Hemoglobin 10.8 g/dL (11.5-14.3); Lymphocyte % 3.4 %; Mean Corpuscular Hemoglobin 29.9 pg (27-33); Mean Corpuscular Hgb Conc 33.5 g/dL (31-36); Mean Corpuscular Volume 89.5 fL (80-97); Mean Platelet Volume 8.9 fL (7.5-11.2); Nucleated Red Blood Cells % 0.1 %/100WBC (0.0-0.8); Platelet Count 301 10^3/uL (150-450); Red Cell Distribution Width 13.3 % (12-17); White Blood Count 11.5 10^3/uL (3.8-11.8)
[2023-05-13 05:13] LABS: Calcium 8.7 mg/dL (8.6-10.3); Creatinine, Serum 0.84 mg/dL (0.51-0.95); Magnesium 2.4 mg/dL (1.9-2.7); Potassium 4.3 mmol/L (3.5-5.0); eGFR CKD-EPI 77.1 (>60)
[2023-05-13] MEDS: Furosemide 40 mg/4 ml IV VIAL IV SCH (10:13)
[2023-05-13] MEDS: Furosemide 40 mg/4 ml IV VIAL ONE (10:22)
[2023-05-13 14:30] LABS: Calcium 8.5 mg/dL (8.6-10.3); Creatinine, Serum 0.95 mg/dL (0.51-0.95); Potassium 4.2 mmol/L (3.5-5.0); eGFR CKD-EPI 66.5 (>60)
[2023-05-14 05:19] LABS: ABS Lymphocytes 0.4 10^3/uL (1.0-4.8); ABS Monocytes 0.5 10^3/uL (0.0-0.9); Hematocrit 31.9 % (35-45); Hemoglobin 10.7 g/dL (11.5-14.3); Lymphocyte % 3.5 %; Mean Corpuscular Hemoglobin 30.1 pg (27-33); Mean Corpuscular Hgb Conc 33.6 g/dL (31-36); Mean Corpuscular Volume 89.5 fL (80-97); Mean Platelet Volume 9.1 fL (7.5-11.2); Platelet Count 270 10^3/uL (150-450); Red Blood Count 3.57 10^6/uL (3.63-4.92); Red Cell Distribution Width 12.8 % (12-17)
[2023-05-14 05:23] LABS: Calcium 8.4 mg/dL (8.6-10.3); Creatinine, Serum 0.84 mg/dL (0.51-0.95); Magnesium 2.5 mg/dL (1.9-2.7); Potassium 4.3 mmol/L (3.5-5.0); eGFR CKD-EPI 77.1 (>60)
[2023-05-14] MEDS: Insulin GLARGINE 100 un/ml 10 ml VIAL SUBCUT ONE (12:11)
[2023-05-14] MEDS: Albuterol/Ipratropium NEB.SOL (2.5/0.5 MG) 3 ML NEB.SOLN INH SCH (13:44)
[2023-05-14] MEDS: methylPREDNISolone SOD SUCC 40 mg/ml 1 ml VIAL IV SCH (15:12)
[2023-05-14] MEDS ORDERED: LORazepam 2 mg VIAL 1 ml IV PUSH PRN (15:29)
[2023-05-14] MEDS ORDERED: Lorazepam PYXIS KEY PRN (15:29)
[2023-05-14] MEDS: LORazepam 2 mg VIAL 1 ml IV PUSH PRN (16:35)
[2023-05-14] MEDS: Propofol 10 mg/ml 100 ML BTL 1,000 MG/100 ML BTL IV SCH (16:54)
[2023-05-15 04:23] LABS: ABS Lymphocytes 0.4 10^3/uL (1.0-4.8); ABS Monocytes 0.4 10^3/uL (0.0-0.9); ABS Neutrophils 11.5 10^3/uL (1.5-7.6); Hematocrit 30.3 % (35-45); Hemoglobin 10.1 g/dL (11.5-14.3); Lymphocyte % 2.9 %; Mean Corpuscular Hemoglobin 29.6 pg (27-33); Mean Corpuscular Hgb Conc 33.2 g/dL (31-36); Mean Corpuscular Volume 89.1 fL (80-97); Mean Platelet Volume 8.9 fL (7.5-11.2); Platelet Count 247 10^3/uL (150-450); Red Cell Distribution Width 13.4 % (12-17); White Blood Count 12.3 10^3/uL (3.8-11.8)
[2023-05-15 04:59] LABS: Calcium 8.2 mg/dL (8.6-10.3); Creatinine, Serum 0.74 mg/dL (0.51-0.95); Magnesium 2.3 mg/dL (1.9-2.7); Potassium 4.5 mmol/L (3.5-5.0); eGFR CKD-EPI 89.7 (>60)
[2023-05-15] MEDS ORDERED: Albuterol/Ipratropium NEB.SOL (2.5/0.5 MG) 3 ML NEB.SOLN INH PRN (07:21)
[2023-05-15 10:36] LABS: Resp Rate 20
[2023-05-15 10:41] LABS: PCO2 Arterial 51 mmHg (35-45); PO2 Arterial 70 mmHg (80-100)
[2023-05-15] MEDS: Insulin GLARGINE 100 un/ml 10 ml VIAL SUBCUT SCH (11:44)
[2023-05-15 11:52] LABS: C Reactive Protein 5.59 mg/L (<8.01)
[2023-05-15] MEDS: Dexmedetomidine 1,000 MCG in NS 0.9% 250 ml 240 ML IV SCH (11:59)
[2023-05-15] MEDS: HYDROmorphone 0.5 MG/0.5 ML SYRINGE IV SCH (16:58)
[2023-05-15] MEDS: fentaNYL 100 mcg/2 ml 50 MCG/ML VIAL IV SLOW PU PRN (18:20)
[2023-05-15] MEDS: hydrALAZINE 20 mg/ml 1 ML Vial IV IV SLOW PU ONE (23:24)
[2023-05-16] MEDS ORDERED: Lorazepam PYXIS KEY PRN (00:27)
[2023-05-16] MEDS: LORazepam 2 mg VIAL 1 ml IV PUSH ONE (00:30)
[2023-05-16 04:24] LABS: Hemoglobin 11.5 g/dL (11.5-14.3); Mean Corpuscular Hgb Conc 33.8 g/dL (31-36); Mean Corpuscular Volume 88.7 fL (80-97); Mean Platelet Volume 9.2 fL (7.5-11.2); Platelet Count 250 10^3/uL (150-450); Red Blood Count 3.83 10^6/uL (3.63-4.92); Red Cell Distribution Width 13.3 % (12-17)
[2023-05-16 04:56] LABS: Calcium 8.1 mg/dL (8.6-10.3); Creatinine, Serum 0.62 mg/dL (0.51-0.95); Magnesium 2.1 mg/dL (1.9-2.7); Potassium 4.4 mmol/L (3.5-5.0); eGFR CKD-EPI 98.8 (>60)
[2023-05-16 07:16] LABS: ABS Lymphocytes 0.4 10^3/uL (1.0-4.8); ABS Monocytes 0.5 10^3/uL (0.0-0.9)
[2023-05-16 11:03] LABS: PCO2 Arterial 37 mmHg (35-45); PO2 Arterial 104 mmHg (80-100)
[2023-05-16] MEDS: HYDROmorphone 0.5 MG/0.5 ML SYRINGE IV PRN (12:23)
[2023-05-16] MEDS: HYDROmorphone 0.5 MG/0.5 ML SYRINGE ONE (12:30)
[2023-05-16] MEDS: HYDROmorphone 0.5 MG/0.5 ML SYRINGE IV SLOW PU ONE (14:52)
[2023-05-16] MEDS: HYDROmorphone 0.5 MG/0.5 ML SYRINGE IV SCH (18:22)
[2023-05-16] MEDS: HYDROmorphone 0.5 MG/0.5 ML SYRINGE IV SLOW PU PRN (19:52)
[2023-05-17 05:29] LABS: ABS Lymphocytes 0.3 10^3/uL (1.0-4.8); ABS Monocytes 0.4 10^3/uL (0.0-0.9); ABS Neutrophils 9.2 10^3/uL (1.5-7.6); Eosinophil % 0.1 %; Hematocrit 30.2 % (35-45); Hemoglobin 10.3 g/dL (11.5-14.3); Lymphocyte % 3.2 %; Mean Corpuscular Hemoglobin 30.2 pg (27-33); Mean Corpuscular Hgb Conc 34.1 g/dL (31-36); Mean Corpuscular Volume 88.8 fL (80-97); Mean Platelet Volume 9.1 fL (7.5-11.2); Platelet Count 207 10^3/uL (150-450); Red Blood Count 3.41 10^6/uL (3.63-4.92); White Blood Count 9.9 10^3/uL (3.8-11.8)
[2023-05-17 06:00] LABS: Creatinine, Serum 0.59 mg/dL (0.51-0.95); Potassium 4.5 mmol/L (3.5-5.0)
[2023-05-17] MEDS: Furosemide 40 mg/4 ml IV VIAL IV SLOW PU ONE (11:55)
[2023-05-17] MEDS: HYDROmorphone 0.5 MG/0.5 ML SYRINGE IV SLOW PU SCH (17:19)
[2023-05-18 04:27] LABS: ABS Lymphocytes 0.3 10^3/uL (1.0-4.8); ABS Monocytes 0.4 10^3/uL (0.0-0.9); Hematocrit 34.4 % (35-45); Hemoglobin 11.8 g/dL (11.5-14.3); Mean Corpuscular Hemoglobin 30.1 pg (27-33); Mean Corpuscular Hgb Conc 34.4 g/dL (31-36); Mean Corpuscular Volume 87.4 fL (80-97); Mean Platelet Volume 9.1 fL (7.5-11.2); Platelet Count 267 10^3/uL (150-450); Red Blood Count 3.93 10^6/uL (3.63-4.92); Red Cell Distribution Width 13.4 % (12-17); White Blood Count 12.7 10^3/uL (3.8-11.8)
[2023-05-18 05:04] LABS: Calcium 8.6 mg/dL (8.6-10.3); Creatinine, Serum 0.64 mg/dL (0.51-0.95); Magnesium 2.1 mg/dL (1.9-2.7); Potassium 3.8 mmol/L (3.5-5.0)
[2023-05-18] MEDS: Lidocaine PATCH 4% TOPICAL SCH (11:19)
[2023-05-19 05:36] LABS: ABS Basophils 0.1 10^3/uL (0.0-0.1); ABS Eosinophils 0.1 10^3/uL (0.0-0.5); ABS Monocytes 0.5 10^3/uL (0.0-0.9); ABS Neutrophils 7.2 10^3/uL (1.5-7.6); ABS Nucleated RBC 0.01 10^3/ul; Eosinophil % 0.6 %; Hematocrit 31.3 % (35-45); Hemoglobin 10.6 g/dL (11.5-14.3); Lymphocyte % 11.5 %; Mean Corpuscular Hgb Conc 33.8 g/dL (31-36); Mean Corpuscular Volume 88.6 fL (80-97); Mean Platelet Volume 9.6 fL (7.5-11.2); Nucleated Red Blood Cells % 0.1 %/100WBC (0.0-0.8); Platelet Count 238 10^3/uL (150-450); Red Blood Count 3.54 10^6/uL (3.63-4.92); Red Cell Distribution Width 13.5 % (12-17); White Blood Count 8.8 10^3/uL (3.8-11.8)
[2023-05-19 05:57] LABS: Calcium 8.4 mg/dL (8.6-10.3); Creatinine, Serum 0.65 mg/dL (0.51-0.95); Magnesium 2.1 mg/dL (1.9-2.7); Potassium 3.3 mmol/L (3.5-5.0); eGFR CKD-EPI 97.6 (>60)
[2023-05-19] MEDS: KCL 20 MEQ/100 ML IVPREMIX 20 MEQ/100 ML BAG IV ONE (10:08)
[2023-05-19] MEDS: Potassium Chlor 20 meq TAB.ER PO ONE (10:40)
[2023-05-19] MEDS: HYDROmorphone 0.5 MG/0.5 ML SYRINGE IV SLOW PU PRN (19:52)
[2023-05-20 05:43] LABS: ABS Eosinophils 0.1 10^3/uL (0.0-0.5); ABS Lymphocytes 1.2 10^3/uL (1.0-4.8); ABS Monocytes 0.4 10^3/uL (0.0-0.9); ABS Neutrophils 6.1 10^3/uL (1.5-7.6); ABS Nucleated RBC 0.01 10^3/ul; Eosinophil % 0.7 %; Hematocrit 30.9 % (35-45); Hemoglobin 10.5 g/dL (11.5-14.3); Lymphocyte % 15.8 %; Mean Corpuscular Hemoglobin 30.4 pg (27-33); Mean Corpuscular Hgb Conc 34.1 g/dL (31-36); Mean Corpuscular Volume 89.4 fL (80-97); Mean Platelet Volume 8.8 fL (7.5-11.2); Nucleated Red Blood Cells % 0.1 %/100WBC (0.0-0.8); Platelet Count 216 10^3/uL (150-450); Red Blood Count 3.45 10^6/uL (3.63-4.92); Red Cell Distribution Width 13.7 % (12-17); White Blood Count 7.8 10^3/uL (3.8-11.8)
[2023-05-20 05:56] LABS: Calcium 8.6 mg/dL (8.6-10.3); Creatinine, Serum 0.58 mg/dL (0.51-0.95); Potassium 3.7 mmol/L (3.5-5.0); eGFR CKD-EPI 100.4 (>60)
[2023-05-20] MEDS ORDERED: HYDROmorphone 0.5 MG/0.5 ML SYRINGE IV SLOW PU PRN (13:19)
[2023-05-20] MEDS ORDERED: Calcium Carb (TUMS) 500 mg CHEW TAB PO PRN (18:33)
[2023-05-20] MEDS: Clotrimazole 1% CREAM 30 gm TOPICAL SCH (20:34)
[2023-05-21] MEDS: Nystatin TOP POWDER 15 GM BTL TOPICAL SCH (17:53)
[2023-05-22 05:27] LABS: ABS Basophils 0.1 10^3/uL (0.0-0.1); ABS Eosinophils 0.2 10^3/uL (0.0-0.5); ABS Lymphocytes 1.6 10^3/uL (1.0-4.8); ABS Monocytes 0.3 10^3/uL (0.0-0.9); ABS Neutrophils 5.9 10^3/uL (1.5-7.6); ABS Nucleated RBC 0.01 10^3/ul; Eosinophil % 2.5 %; Hematocrit 29.7 % (35-45); Hemoglobin 10.2 g/dL (11.5-14.3); Lymphocyte % 20.1 %; Mean Corpuscular Hemoglobin 30.6 pg (27-33); Mean Corpuscular Hgb Conc 34.4 g/dL (31-36); Mean Corpuscular Volume 88.9 fL (80-97); Mean Platelet Volume 8.5 fL (7.5-11.2); Nucleated Red Blood Cells % 0.1 %/100WBC (0.0-0.8); Platelet Count 225 10^3/uL (150-450); Red Blood Count 3.34 10^6/uL (3.63-4.92); Red Cell Distribution Width 13.7 % (12-17); White Blood Count 8.2 10^3/uL (3.8-11.8)
[2023-05-22 05:45] LABS: Calcium 8.5 mg/dL (8.6-10.3); Creatinine, Serum 0.61 mg/dL (0.51-0.95); Potassium 3.6 mmol/L (3.5-5.0); eGFR CKD-EPI 99.2 (>60)
[2023-05-23 15:07] LABS: Urine Appearance Turbid; Urine Bilirubin Negative (Negative); Urine Blood 2+ (Negative); Urine Color Yellow; Urine Glucose Negative (Negative); Urine Ketones Negative (Negative); Urine Nitrite Negative (Negative); Urine Protein 1+ (>=30 mg/dL) (Negative); Urine Specific Gravity 1.025 (1.002-1.030); Urine Urobilinogen Negative (Negative); Urine pH 5.5 (5.0-8.0)
[2023-05-23 15:10] LABS: Budding Yeast Present /HPF (Absent); Urine Bacteria 1+ /HPF (Absent); Urine Red Blood Cell 3+(>10/hpf) /HPF (0-Trace); Urine Squamous Epithelial Cell Present /HPF (Absent); Urine White Blood Cell 3+(>20/hpf) /HPF (0-Trace)
[2023-05-23] MEDS: cefTRIAXone 1 gm/50 mL D5W 1 GM/50 ML BAG IV SCH (16:45)
[2023-05-24 10:47] VITALS: BP 105/62
== END 2023-05-24 13:00 | DRG 207 ==
LOC: ICU 12:53 → SUATTDRO 12:53 → MED 05-19 17:55
PROVIDERS: ADMIT Internal Medicine; ATTEND Hospitalist

== ENCOUNTER 2023-05-24 10:35 | Inpatient (IN) ==
[2023-05-24] MEDS ORDERED: Senna TAB 8.6 mg TAB PO PRN (14:35)
[2023-05-24] MEDS ORDERED: Magnesium Hydroxide LIQ 30 ML UDC PO PRN (14:35)
[2023-05-24] MEDS: Enoxaparin 40 MG/0.4 ML SYR SUBCUT SCH (16:55)
[2023-05-24] MEDS: cefTRIAXone 1 gm/50 mL D5W 1 GM/50 ML BAG IV SCH (16:55)
[2023-05-24] MEDS ORDERED: Dextran 70/Hypromellose Tears Eye Drops 15 ml BTL (for Artificials Tears) BOTH EYES PRN (17:46)
[2023-05-24] MEDS: Nystatin TOP POWDER 15 GM BTL TOPICAL SCH (21:11)
[2023-05-25 06:26] LABS: ABS Basophils 0.1 10^3/uL (0.0-0.1); ABS Eosinophils 0.3 10^3/uL (0.0-0.5); ABS Lymphocytes 1.3 10^3/uL (1.0-4.8); ABS Monocytes 0.4 10^3/uL (0.0-0.9); ABS Neutrophils 4.7 10^3/uL (1.5-7.6); ABS Nucleated RBC 0.02 10^3/ul; Eosinophil % 4.3 %; Hematocrit 28.1 % (35-45); Hemoglobin 9.8 g/dL (11.5-14.3); Lymphocyte % 19.6 %; Mean Corpuscular Hemoglobin 31.4 pg (27-33); Mean Corpuscular Hgb Conc 34.9 g/dL (31-36); Nucleated Red Blood Cells % 0.4 %/100WBC (0.0-0.8); Platelet Count 198 10^3/uL (150-450); Red Blood Count 3.12 10^6/uL (3.63-4.92); Red Cell Distribution Width 14.7 % (12-17); White Blood Count 6.7 10^3/uL (3.8-11.8)
[2023-05-25 06:59] LABS: Albumin 3.4 g/dL (3.2-5.2); Albumin/Globulin Ratio 1.4 (1-3); Calcium 8.6 mg/dL (8.6-10.3); Creatinine, Serum 0.64 mg/dL (0.51-0.95); Globulin 2.4 g/dL (2-4); Total Bilirubin 0.5 mg/dL (0.2-1.0); Total Protein 5.8 g/dL (6.4-8.9)
[2023-05-25] MEDS: Aspirin EC 81 mg TAB.EC (enteric coated) PO SCH (08:07)
[2023-06-01 06:33] LABS: ABS Eosinophils 0.1 10^3/uL (0.0-0.5); ABS Lymphocytes 1.4 10^3/uL (1.0-4.8); ABS Monocytes 0.5 10^3/uL (0.0-0.9); ABS Neutrophils 2.2 10^3/uL (1.5-7.6); ABS Nucleated RBC 0.01 10^3/ul; Eosinophil % 1.7 %; Hematocrit 30.4 % (35-45); Hemoglobin 10.4 g/dL (11.5-14.3); Lymphocyte % 32.9 %; Mean Corpuscular Hemoglobin 30.8 pg (27-33); Mean Corpuscular Hgb Conc 34.2 g/dL (31-36); Mean Corpuscular Volume 90.1 fL (80-97); Mean Platelet Volume 7.9 fL (7.5-11.2); Nucleated Red Blood Cells % 0.1 %/100WBC (0.0-0.8); Platelet Count 372 10^3/uL (150-450); Red Blood Count 3.38 10^6/uL (3.63-4.92); Red Cell Distribution Width 15.8 % (12-17); White Blood Count 4.2 10^3/uL (3.8-11.8)
[2023-06-01 06:49] LABS: Albumin 3.7 g/dL (3.2-5.2); Albumin/Globulin Ratio 1.4 (1-3); Calcium 9.1 mg/dL (8.6-10.3); Creatinine, Serum 0.66 mg/dL (0.51-0.95); Globulin 2.7 g/dL (2-4); Potassium 4.5 mmol/L (3.5-5.0); Total Bilirubin 0.4 mg/dL (0.2-1.0); Total Protein 6.4 g/dL (6.4-8.9); eGFR CKD-EPI 97.3 (>60)
[2023-06-02 05:11] VITALS: BP 145/78
== END 2023-06-02 13:15 | disposition home or self-care (01) | DRG 189 ==
LOC: PMRU 13:31
PROVIDERS: ADMIT Physical Medicine & Rehabilitation; ATTEND Physical Medicine & Rehabilitation